=== PATIENT | male | born 1950 | race Caucasian/White ===

== ENCOUNTER 2020-07-16 17:21 | Emergency (ER) | payer MEDICARE ==
[~2020-07-16] VITALS: Ht 182.9 cm; Wt 47.6 kg
[2020-07-16] MEDS ORDERED: HYDROCODONE/APAP 7.5MG-325MG 1 EA TAB PO PRN (19:00)
[2020-07-16] MEDS ORDERED: HYDROCODONE/APAP 7.5MG-325MG 1 EA TAB ONE (19:03)
== END 2020-07-16 20:17 | disposition home or self-care (01) ==
LOC: ER 18:15
DX: M25.512 Pain in left shoulder (principal); W05.2XXA Fall from non-moving motorized mobility scooter, initial encounter; I10 Essential (primary) hypertension; E78.5 Hyperlipidemia, unspecified; D64.9 Anemia, unspecified
CPT/HCPCS: 99283